=== PATIENT | female | born 1950 | race Caucasian/White ===

== ENCOUNTER 2018-11-06 10:58 | Emergency (ER) | payer MEDICARE, OTHER, SELFPAY ==
[2018-11-06 11:03] VITALS: BP 129/90; PULSE 68; RESP 16; TEMP 36.7; O2SAT 98
--- NOTE | 2018-11-06 11:24 | ED.GENADUL_ITS ---
Discharge Plan Disposition Patient Disposition: HOME Condition: Fair Discharge Details Chief Complaint: Orthopedic Clinical Impression: Foot sprain Primary Care Provider: [facility] Provider: Aparna Edwards Home Meds and New Rx's Prescriptions: Continued levothyroxine [Synthroid] 88 mcg Tablet 88 mcg PO DAILY RF: 0 Discharge Instructions Instructions: Foot Sprain (ED) Additional Instructions: Encourage rest, ice, elevation. Tylenol and/or Motrin as needed for discomfort. Please follow up with primary care next week for reevaluation. Continue with brace until evaluated. Seek care urgently once again if you develop new/worsening symptoms. Discharge Data Discharge Date/Time-TO BE ENTERED AT DEPARTURE: 11/06/18 13:58 Medical Decision Making Patient is a 68-year-old female presents today with chief complaint of left foot pain. She reports a prior to arrival, she was walking on the deck and missed s tepped off of the platform which she reports was the equivalent of a large step. States she landed directly on the foot and since that time has been having pain. She does have ecchymosis and swelling over the lateral midfoot. She indicates the superior aspect of the foot is area of maximal pain. She reports that she was able to ambulate initially but since that time has not been able to weight-bear. Did take ibuprofen prior to arrival. Is been resting, icing, elevating. Denies other injury the time of the incident. X-ray reviewed by radiologist with no acute abnormality noted. Discussed these findings with the patient. I encouraged rest, ice, elevation. Tylenol and/or ibuprofen as needed for discomfort. Advised slip the strain. Advise follow-up with primary care if not improving in the next week. Given the discomfort she is been having with ambulation, patient will be fitted with a postoperative shoe. Discussed new/worsening symptoms that should prompt her to seek care u rgently once again. All the questions and concerns were addressed and she is in agreement with this plan. HPI General Mode of arrival: wheelchair . Date/Time Provider Initiated Documentation: 11/06/18 11:23 . Limitations to Documentation: no limitations . Information obtained by: patient and RN notes reviewed . History of Present Illness 68 year old F presents to the emergency department with the chief complaint of left foot pain, described as moderate, with intensity rated at 4. Quality is described as aching, and is localized to the left and lower extremity. Patient reports no radiation. Patient started experiencing this hour(s) (2) and it has been constant. Immobilization improves symptom(s), Movement worsens symptoms (weight bearing) . Patient notes no other symptoms.. Patient did receive the following treatments prior to arrival, NSAID and cold therapy Related Data Home Medications Medication Instructions Recorded Confirmed levothyroxine [Synthroid] 88 mcg PO DAILY 11/06/18 11/06/18 Allergies Allergy/AdvReac Type Severity Reaction Status Date / Time No Known Allergies Allergy Unverified 11/06/18 11:08 General Stated Complaint: Orthopedic ANILA: 4 Review of Systems Constitutional Reports as per HPI, Denies chills, Denies fever(s), Denies headache(s) and Denies weakness ENT Denies headache(s) Cardiovascular Reports as per HPI Respiratory Reports as per HPI and Denies cough Musculoskeletal Reports as per HPI and Denies tingling Integumentary/Breasts Reports as per HPI, Denies rash and Denies wounds Neurologic Reports as per HPI, Denies headache(s), Denies tingling, Denies paresthesias and Denies weakness [facility] Social History Smoking/Tobacco Use Status: Never Alcohol Intake: current Alcohol Intake frequency: a few times a month Drug use: Never Substance use type: does not use Do you feel safe at home: Yes Do you feel safe in your relationship?: Yes Exam Const General: cooperative, healthy appearing, comfortable, no acute distress, well developed and well groomed Nutritional Appearance: average body habitus and well nourished Orientation: alert and awake Resp Effort & Inspection: normal respiratory effort, able to speak in complete sentences and no respiratory distress Cardio Rate: regular rate Rhythm: regular rhythm Skin General skin exam: no rashes or lesions noted Lesions: no lesions Rashes: no rashes Trauma: no lacerations or abrasions Neuro General: alert and awake Cognition: normal cognition Speech: speech normal Gait: antalgic Motor: muscle tone normal throughout Sensory Exam: no sensory deficits noted Extrem Left lower extremity: full ROM, normal capillary refill, no joint enlargement, knee (No pain to palpation over proximal fibula), lower leg Details: normal to inspection; no tenderness, ankle Details: normal to inspection, no edema and normal ROM; no tenderness, no swelling, no warmth, no lacerations and achilles tendon exam normal and foot Details: normal capillary refill, abnormal to inspection (Localized ecchymosis and swelling lateral midfoot), tenderness Location: of the dorsal foot Location: proximally, of the lateral foot and of the mid foot; not of the great toe, not of any other digit, not of the calcaneus, not of the medial foot and not of the base of the 5th metatarsal, toes with normal ROM and motor-sensory exam Details: light-touch normal; abnormal to inspection (Patient has swelling and ecchymosis to the lateral left midfoot) and no edema Psych Appearance: grossly normal and well kempt Mental Status: mental status grossly normal Speech and Movement: speech and movement normal Course Vital Signs Temperature 36.7 C 11/06/18 11:03 Pulse 68 11/06/18 11:03 Respiratory Rate 16 11/06/18 11:03 Blood Pressure 129/90 11/06/18 11:03 Pulse Oximetry 98 11/06/18 11:03 Temperature 36.7 C 11/06/18 11:03 Temperature Source Skin 11/06/18 11:03 Pulse 68 11/06/18 11:03 Respiratory Rate 16 11/06/18 11:03 Respiratory Effort 11/06/18 11:11 Blood Pressure 129/90 11/06/18 11:03 Blood Pressure Position Sitting 11/06/18 11:03 Pulse Oximetry 98 11/06/18 11:03 Oxygen Delivery Method Cpap 11/06/18 11:03 Oxygen Flow Rate 0 11/06/18 11:03 Pain Level 4 11/06/18 11:03
--- NOTE | 2018-11-06 11:47 | DI.RAD_ITS ---
SYMPTOMS/DIAGNOSIS: MIDFOOT PAIN, ? LISFRANC LEFT FOOT: No fracture or dislocation is seen. IMPRESSION: Negative left foot.
[2018-11-06] MEDS: Acetaminophen 325 MG TAB 650 MG PO (12:30)
[2018-11-06 13:59] VITALS: BP 129/90; PULSE 68; RESP 16; TEMP 36.7; O2SAT 98
== END 2018-11-06 13:58 | disposition home or self-care (01) ==
PROVIDERS: Emergency Provider Physician Assistant
DX: S93.602A Unspecified sprain of left foot, initial encounter (principal); W10.8XXA Fall (on) (from) other stairs and steps, initial encounter
CPT/HCPCS: 99283; 73630

== ENCOUNTER 2019-11-02 04:32 | Emergency (ER) | payer MEDICARE, OTHER, SELFPAY ==
[2019-11-02 04:37] VITALS: BP 147/75; PULSE 85; RESP 16; TEMP 36.7; O2SAT 99
--- NOTE | 2019-11-02 04:41 | W.ED.GENAD ---
Discharge Plan Disposition Patient Disposition: HOME Condition: Stable Discharge Details Chief Complaint: Allergic Clinical Impression: Bee sting Primary Care Provider: [facility] Provider: Zeke Durham Home Meds and New Rx's Prescriptions: New prednisone 20 mg tablet 60 mg PO DAILY 4 Days Qty: 12 RF: 0 amoxicillin-pot clavulanate [Augmentin] 875-125 mg tablet 1 tab PO BID Qty: 14 RF: 0 epinephrine 0.3 mg/0.3 mL auto-injector 0.3 mg IM Q5-15M PRNQty: 2 RF: 0 Continued levothyroxine [Synthroid] 88 mcg Tablet 88 mcg PO DAILY RF: 0 Eliquis 5 mg Tablet 5 mg PO BID RF: 0 Discharge Instructions Additional Instructions: continue to take benadryl as needed for itching or swelling if you have severe worsening pain or fevers, difficulty breathing or abdominal pain, or feel more ill return to the emegency department Medical Decision Making 69 yo female states she was digging to place [place] at her mother's gravesite yesterday around 1pm when she hit a bee hive and got stung in left medial distal thigh. HAs had increased swelling and redness to the area despite benadryl. Denies any respiratory or gi complaints, no fevers. Arrives hd stable and appears well systemically speaking in full sentences. She has warm erythematous skin about [id number] in size to the distal left medial thigh that is not tender, has full rom of the knee with intact sensation. Suspect local skin reaction but given the warmth concern for possible cellulitis, will tx with steroids and abx. Advised f/u with pcp and return precautions given. She has no findings to suggest anaphylaxis but would like an epi pen in case she needs it in the future Differential Diagnosis Differential Diagnosis: urticaria, cellulitis, local skin reaction HPI General Mode of arrival: ambulatory. Date/Time Provider Initiated Documentation: 11/02/19 04:34. Limitations to Documentation: no limitations. Information obtained by: patient. History of Present Illness 69 year old F presents to the emergency department with the chief complaint of left leg redness s/p bee sting 1pm yesterday, and it has been constant. No relieving factors improve symptom(s), No exacerbating factors reported . Related Data Home Medications Medication Instructions Recorded Confirmed levothyroxine [Synthroid] 88 mcg PO DAILY 11/06/18 11/06/18 Eliquis 5 mg PO BID 11/02/19 11/02/19 amoxicillin-pot clavulanate 1 tab PO BID #14 tab 11/02/19 [Augmentin] epinephrine 0.3 mg IM Q5-15M PRN #2 each 11/02/19 prednisone 60 mg PO DAILY 4 Days #12 tab 11/02/19 Previous Rx's Medication Instructions Recorded amoxicillin-pot clavulanate 1 tab PO BID #14 tab 11/02/19 [Augmentin] epinephrine 0.3 mg IM Q5-15M PRN #2 each 11/02/19 prednisone 60 mg PO DAILY 4 Days #12 tab 11/02/19 Allergies Allergy/AdvReac Type Severity Reaction Status Date / Time No Known Allergies Allergy Unverified 11/02/19 04:41 General Stated Complaint: Allergic ANILA: 4 Review of Systems All systems reviewed & are unremarkable except as noted in HPI and below Constitutional Constitutional: Denies chills, Denies fever(s) and Denies weakness Cardiovascular Cardiovascular: Denies chest pain and Denies dyspnea Respiratory Respiratory: Denies cough and Denies dyspnea Gastrointestinal Gastrointestinal: Denies abdominal pain, Denies nausea and Denies vomiting Genitourinary Genitourinary: Denies dysuria Neurologic Neurologic: Denies weakness Psychiatric Psychiatric: Denies depression [facility] Medical History (Updated 11/02/19 @ 04:46 by Zeke Durham MD) Atrial fibrillation (Chronic) Hypothyroid (Chronic) Social History Smoking/Tobacco Use Status: Never Alcohol Intake: current Alcohol Intake frequency: a few times a month Drug use: Never Substance use type: does not use Do you feel safe at home: Yes Do you feel safe in your relationship?: Yes Exam Const General: no acute distress Orientation: alert HENMT Head: normal to inspection Ears: external ears normal General nose exam: external nose normal Mouth: moist mucous membranes Eyes General: appearance normal, both eyes and all related structures Neck Neck: normal visual inspection Resp Effort & Inspection: normal respiratory effort and able to speak in complete sentences Cardio Rate: regular rate Skin General skin exam: no pallor Neuro General: patient alert and patient oriented x3 Extrem General: full ROM Psych Mental Status: mental status grossly normal Course Vital Signs Vital signs: Vital Signs Temperature 36.7 C 11/02/19 04:37 Pulse 85 11/02/19 04:37 Respiratory Rate 16 11/02/19 04:37 Blood Pressure 147/75 H 11/02/19 04:37 Pulse Oximetry 99 11/02/19 04:37 Temperature 36.7 C 11/02/19 04:37 Temperature Source Skin 11/02/19 04:37 Pulse 85 11/02/19 04:37 Respiratory Rate 16 11/02/19 04:37 Blood Pressure 147/75 H 11/02/19 04:37 Pulse Oximetry 99 11/02/19 04:37 Pain Level 4 11/02/19 04:37
[2019-11-02] MEDS: predniSONE 20 MG TAB 60 MG PO (04:49)
[2019-11-02] MEDS: Amoxicillin 875/Clav. 125 TAB PO (04:49)
== END 2019-11-02 05:00 | disposition home or self-care (01) ==
LOC: ER 05:18
PROVIDERS: Emergency Provider Emergency Medicine
DX: T63.441A Toxic effect of venom of bees, accidental (unintentional), initial encounter (principal); L53.9 Erythematous condition, unspecified; Z79.01 Long term (current) use of anticoagulants; I48.91 Unspecified atrial fibrillation
CPT/HCPCS: 99283; J7512